=== PATIENT | male | born 1975 | race Two or more races ===

== ENCOUNTER 2023-06-07 08:22 | Emergency (ER) | payer SELFPAY ==
[~2023-06-07] VITALS: Ht 172.7 cm; Wt 91.0 kg
[2023-06-07 08:26] VITALS: BP 144/109; PULSE 94; RESP 16; TEMP 98.4
== END 2023-06-07 14:21 | disposition left against medical advice (07) ==
LOC: EMS 08:25
DX: R21 Rash and other nonspecific skin eruption (principal); Z53.21 Procedure and treatment not carried out due to patient leaving prior to being seen by health care provider
CPT/HCPCS: 99281; Z7502

== ENCOUNTER 2023-09-24 14:17 | Emergency (ER) | payer MEDICAID ==
[~2023-09-24] VITALS: Ht 177.8 cm; Wt 96.0 kg
[2023-09-24 14:22] VITALS: BP 159/101; PULSE 83; RESP 16; TEMP 97.5
== END 2023-09-24 19:32 | disposition left against medical advice (07) ==
LOC: EMS 14:17
DX: R51.9 Headache, unspecified (principal)
CPT/HCPCS: 99281; Z7502